=== PATIENT | male | born 1965 | race Hispanic/Latino ===

== ENCOUNTER 2023-09-16 11:47 | Emergency (ER) | payer OTHER ==
[~2023-09-16] VITALS: Ht 167.6 cm; Wt 95.3 kg
[2023-09-16] MEDS ORDERED: DICL20GE TP (12:02)
[2023-09-16] MEDS: KETOROLAC 30MG VIAL (30MG/ML) IM ONE (12:12)
[2023-09-16 12:27] VITALS: BP 127/87; PULSE 74; RESP 16; O2SAT 98
== END 2023-09-16 12:32 | disposition home or self-care (01) ==
LOC: EDH 11:47
DX: S46.012A Strain of muscle(s) and tendon(s) of the rotator cuff of left shoulder, initial encounter (principal); V89.2XXA Person injured in unspecified motor-vehicle accident, traffic, initial encounter; Y93.I9 Activity, other involving external motion; Y92.488 Other paved roadways as the place of occurrence of the external cause; Y99.8 Other external cause status
CPT/HCPCS: 99283; 96372; J1885